=== PATIENT | male | born 1970 | race African-American/Black ===

== ENCOUNTER 2019-09-08 20:00 | Emergency (ER) | payer BC, OTHER ==
[~2019-09-08] VITALS: Ht 180.3 cm; Wt 99.3 kg
[2019-09-08 20:10] VITALS: BP 133/78
[2019-09-08] MEDS ORDERED: Bacitracin Oint UD TOPIC ONE ×2 (20:26→20:30)
[2019-09-08] MEDS ORDERED: OFLOXACIN5 ML RIGHT EAR (20:40)
[2019-09-08 20:45] VITALS: BP 133/78
--- NOTE | 2019-09-08 21:08 | Emergency Room Report ---
History of Present Illness General Chief Complaint: Earache Source: Patient Present Illness Allergies: Coded Allergies: No Known Allergies (Unverified , 09/08/19) Nursing Documentation-[facility] Past Medical History: No Stated History Physical Exam Vital Signs Date Time Temp Pulse Resp B/P (MAP) Pulse Ox O2 Delivery O2 Flow Rate FiO2 09/08/19 20:07 97.9 75 18 133/78 (96) 96 Room Air Medical Decision Making Diagnostic Impression: Primary Impression: Irritation of external ear canal Last Vital Signs Date Time Temp Pulse Resp B/P (MAP) Pulse Ox O2 Delivery O2 Flow Rate FiO2 09/08/19 20:45 97.9 75 18 133/78 96 Room Air Status: improved Disposition: HOME, SELF-CARE Condition: Stable Scripts Ofloxacin (OFLOXACIN) 5 Ml Drops 10 DROP RIGHT EAR DAILY for 7 Days, ML Prov: Christian Saini MD 09/08/19 Referrals: Karrie Arboleda MD Patient Instructions: Otitis Externa, [id number] Christian Saini MD Sep 08, 2019 21:08
--- NOTE | 2019-09-11 14:24 | Emergency Room Report ---
History of Present Illness General Chief Complaint: Earache Source: Patient Present Illness HPI 49-year-old male for evaluation. States that he started having bleeding from his ear and some dizziness which started tonight. States that earlier in the day he put a Q-tip in his ear. States there is some pain. Dull, 5 out of 10, nonradiating. Denies any change in hearing. Denies fevers or chills. No other aggravating relieving factors. Denies any other associated symptoms Allergies: Coded Allergies: No Known Allergies (Unverified , 09/08/19) Patient History Past Medical History: none Past Surgical History: none Pertinent Family History: none Social History: Denies: smoking, alcohol use, drug use Immunizations: UTD Reviewed Nursing Documentation: PMH: Agreed; PSxH: Agreed Nursing Documentation-PMH Past Medical History: No Stated History Review of Systems All Other Systems: negative except mentioned in HPI Physical Exam Vital Signs Date Time Temp Pulse Resp B/P (MAP) Pulse Ox O2 Delivery O2 Flow Rate FiO2 09/08/19 20:07 97.9 75 18 133/78 (96) 96 Room Air Sp02 EP Interpretation: reviewed, normal General Appearance: no apparent distress, alert, GCS 15, non-toxic Head: normocephalic, atraumatic Eyes: bilateral eye normal inspection, bilateral eye PERRL ENT: hearing grossly normal, normal pharynx, no angioedema, normal voice, other - R TM intact. clear. blood in ear canal. no active bleeding. erythema. no swelling Neck: full range of motion, supple/symm/no masses Respiratory: chest non-tender, lungs clear, normal breath sounds, speaking full sentences Cardiovascular #1: regular rate, rhythm, no edema Cardiovascular #2: 2+ carotid (R), 2+ carotid (L), 2+ radial (R), 2+ radial (L) , 2+ dorsalis pedis (R), 2+ dorsalis pedis (L) Gastrointestinal: normal bowel sounds, non tender, soft, non-distended, no guarding, no rebound Rectal: deferred Genitourinary: normal inspection, no CVA tenderness Musculoskeletal: back normal, normal range of motion, gait/station normal, non- tender Neurologic: alert, motor strength/tone normal, oriented x3, sensory intact, responsive, speech normal Psychiatric: judgement/insight normal, memory normal, mood/affect normal, no suicidal/homicidal ideation Reflexes: 3+ bicep (R), 3+ bicep (L), 3+ tricep (R), 3+ tricep (L), 3+ knee (R) , 3+ knee (L) Lymphatic: no adenopathy Medical Decision Making Diagnostic Impression: Primary Impression: Irritation of external ear canal Qualified Codes: H61.891 - Other specified disorders of right external ear ER Course Hospital Course 49-year-old M presents to ED with bleeding R ear Differential diagnoses include: TM perforation, otitis externa, otitis media Clinical course Patient placed on stretcher. After initial history, physical exam reveals a male in no acute distress. R TM intact. Clear. Erythema and blood noted to the ear canal. No active bleeding. Used a swab to clean out ear canal and there is erythema noted. No laceration. Discussed with patient. Will discharge with. Safe for discharge. I will provide ENT referral Diagnosis - irritation of external ear canal Stable and discharged to home with Rx ofloxacin otic. Followup with PMD/ENT. Return to ED if symptoms recur or worsen Last Vital Signs Date Time Temp Pulse Resp B/P (MAP) Pulse Ox O2 Delivery O2 Flow Rate FiO2 09/08/19 20:45 97.9 75 18 133/78 96 Room Air Status: improved Disposition: HOME, SELF-CARE Condition: Stable Scripts Ofloxacin (OFLOXACIN) 5 Ml Drops 10 DROP RIGHT EAR DAILY for 7 Days, ML Prov: Christian Saini MD 09/08/19 Referrals: [facility],REFERRING (PCP) Karrie Arboleda MD Patient Instructions: Otitis Externa, [id number] Christian Saini MD Sep 11, 2019 14:24
== END 2019-09-08 20:45 | disposition home or self-care (01) ==
LOC: EMR 20:45
DX: H61.891 Other specified disorders of right external ear (principal)
CPT/HCPCS: 99282